=== PATIENT | female | born 1995 | race African-American/Black ===

== ENCOUNTER 2018-07-13 20:06 | Emergency (ER) | payer SELFPAY ==
[2018-07-13 20:09] VITALS: BP 116/73; PULSE 74; TEMP 98; BMI 23.6
--- NOTE | 2018-07-13 20:44 | PDOC ---
Attending Attestation - HPI HPI: 07/13/18 22:12 The patient is a 23 year old female, with a significant PMH of anemia, who presents to the emergency department with abdominal pain that began 2 weeks after the of the her child 5 weeks ago. The patient states the sharp intermittent pain is located to the upper right and left quadrant that is exacerbated when yawning and lying down. The patient states she endorses associated symptoms of chills, SOB, constipation and white vaginal discharge. The patient states she hasn't past a bowel movement in the past 3 weeks. The patient denies chest pain, headache and dizziness. Denies fever, nausea, vomit, and diarrhea. Denies dysuria, frequency, urgency and hematuria. Allergies: NKDA Past surgical history: None reported Social history: None reported PCP: None reported Documentation prepared by Kate Linder, acting as medical assisting program director for Rimma Blair MD. - Physicial Exam PE: 07/13/18 22:13 GENERAL: Awake, alert, and fully oriented, in no acute distress HEAD: No signs of trauma EYES: PERRLA, EOMI, sclera anicteric, conjunctiva clear ENT: Auricles normal inspection, hearing grossly normal, nares patent, oropharynx clear without exudates. Moist mucosa NECK: Normal ROM, supple, no lymphadenopathy, JVD, or masses LUNGS: Breath sounds equal, clear to auscultation bilaterally. No wheezes, and no crackles HEART: Regular rate and rhythm, normal S1 and S2, no murmurs, rubs or gallops ABDOMEN: +Right CVA tenderness and diffuse right abdomen tenderness with voluntary guarding. Soft and no masses EXTREMITIES: Normal range of motion, no edema. No clubbing or cyanosis. No cords, erythema, or tenderness NEUROLOGICAL: Cranial nerves II through XII grossly intact. Normal speech, normal gait SKIN: Warm, Dry, normal turgor, no rashes or lesions noted. Documentation prepared by Kate Linder, acting as medical assisting program director for Rimma Blair MD. <Kate Linder - Last Filed: 07/13/18 22:21> - Resident Resident Name: Brent Gee - Medical Decision Making 07/21/18 07:33 Pt presents to the ED complaining of vague abdominal and back pain for the last week. Afebrile, with R sided abdominal pain. US performed to evaluate for endometritis and is negative. UA negative for infection or . CT performed to evaluate for intraabdominal pathology including appendicitis or renal stone, and is negative. Symptoms may be secondary to constipation. Patient advised to try dietary changes and laxatives and return immediately for worsening symptoms. 07/21/18 07:34 <Rimma Blair - Last Filed: 07/21/18 07:38>
[2018-07-13] MEDS ORDERED: SODIUM CHLORIDE 1,000 ML IV STA (21:08)
[2018-07-13] MEDS ORDERED: ACETAMINOPHEN 1000 MG/100 ML VIAL (NON FORMULARY) IVPB ONE (21:09)
--- NOTE | 2018-07-13 21:20 | PDOC ---
History of Present Illness - General Chief Complaint: Pain Stated Complaint: PAIN Time Seen by Provider: 07/13/18 20:44 History Source: Patient Exam Limitations: No Limitations - History of Present Illness Initial Comments: 07/13/18 21:44 23f with pmh of vaginal delivery at term 5 weeks ago, complaining of sharp 10/ 10 b/l flank pain, worse on the right increasing in intensity for the past 3 weeks. She states that she has been constipated since she gave . Used castor oil as a laxative, 3 weeks ago, had a hard, bloody stool. Says she hasn't had a bm for the past 3 weeks. Has some shortness of breath but due to the pain upon inspiration. Some white vaginal discharge but no blood, not foul-smelling. Hasn't felt like eating since then either. Hasn't had intercourse since delivery. Denies diarrhea or dysuria. No vomiting. She just flew back from [place] 2 weeks ago,. Past History - Past Medical History Allergies/Adverse Reactions: Allergies Allergy/AdvReac Type Severity Reaction Status Date / Time No Known Allergies Allergy Verified 07/13/18 22:15 Home Medications: Ambulatory Orders Polyethylene Glycol 3350 [Miralax (For Bowel Prep) -] 17 gm PO DAILY #1 bottle 07/14/18 Anemia: Yes (SICKLE CELL TRAIT.) COPD: No - Suicide/Smoking/Psychosocial Hx Smoking History: Never smoked Review of Systems - Review of Systems Able to Perform ROS?: Yes Is the patient limited Japanese proficient: No Constitutional: No: Symptoms Reported HEENTM: No: Symptoms Reported Respiratory: No: Symptoms reported Cardiac (ROS): No: Symptoms Reported ABD/GI: Yes: See HPI, Constipated. No: Vomiting : No: Symptoms Reported Musculoskeletal: No: Symptoms Reported Integumentary: No: Symptoms Reported Neurological: No: Symptoms reported *Physical Exam - Vital Signs Last Vital Signs Temp Pulse Resp BP Pulse Ox 98.0 F 74 18 116/73 100 07/13/18 20:07 07/13/18 20:07 07/13/18 20:07 07/13/18 20:07 07/13/18 20:07 - Physical Exam General Appearance: Yes: Nourished, Appropriately Dressed. No: Apparent Distress HEENT: positive: EOMI, [place], Normal ENT Inspection Respiratory/Chest: positive: Lungs Clear, Normal Breath Sounds. negative: Chest Tender, Respiratory Distress Cardiovascular: positive: Regular Rhythm, Regular Rate, S1, S2 Vascular Pulses: Dorsalis-Pedis (R): 2+, Doralis-Pedis (L): 2+ Female Pelvic Exam: positive: normal external exam, cervical os closed. negative: CMT, lesions, Bartholin mass, adnexal tenderness Gastrointestinal/Abdominal: positive: Normal Bowel Sounds, Tender (lower right and left ), Guarding (voluntary) Musculoskeletal: positive: Normal Inspection. negative: CVA Tenderness Extremity: positive: Normal Capillary Refill, Normal Inspection, Normal Range of Motion Integumentary: positive: Normal Color, Dry, Warm Neurologic: positive: Fully Oriented, Alert, Normal Mood/Affect, Normal Response , Motor Strength 5/5 Moderate Sedation - Procedure Monitoring Vital Signs: Procedure Monitoring Vital Signs Temperature 98.0 F 07/13/18 20:07 Pulse Rate 74 07/13/18 20:07 Respiratory Rate 18 07/13/18 20:07 Blood Pressure 116/73 07/13/18 20:07 O2 Sat by Pulse Oximetry (%) 100 07/13/18 20:07 ED Treatment Course - LABORATORY CBC & Chemistry Diagram: 07/13/18 21:34 07/13/18 21:34 Medical Decision Making - Medical Decision Making 07/13/18 22:10 23f 5 weeks post presenting with abdominal pain and constipation, Constipation vs nephrolitiasis vs appendicitis vs PE vs ectopic vs pelvic/ovarian abscess vs endometritis If true that the patient hasnt moved her bowels in 3 week, it is likely the source of her pain, however we have to consider appendicitis, due to anorexia and LRQ pain and nephrolithiasis due to to b/l flank pain which we will determine by ct abd/pelvis after determination of (albeit unlikely) status. In addition we will obtain a transvaginal ultrasound to rule out abscess, PID and endometritis which is unlikely given the lack of lochia and foul smelling discharge Patient is afebrile here but she did report brief, resolved history of subjective fever and chills. Will evaluate white count in basic labs. PE is low in the differential: even though the patient is somewhat peripartum and recent travelled by plane, with pain on inspiration, she has no chest complaints, vitals are stable, not tachy, and she has no leg swelling, no leg pain, no hemoptysis and her pain started before she travelled, for weeks. 07/13/18 22:28 07/14/18 00:49 CT abdomen and pelvis shows 1.5cm ovarian cyst. US pending 07/14/18 01:18 US: small amount of free fluid, physiological for a woman this age. Will discharge with laxative Rx and give OBGYN referral. *DC/Admit/Observation/Transfer Diagnosis at time of Disposition: Constipation - Discharge Dispostion Disposition: HOME Condition at time of disposition: Improved Decision to Admit order: No - Referrals Referrals: Marisa Hannah DO [Staff Physician] - - Patient Instructions Printed Discharge Instructions: DI for Constipation Additional Instructions: Follow up with Dr. Hannah for any OBGYN issues. Come back to the emergency department for any new, worsening or concerning symptom. - Post Discharge Activity
[2018-07-13] MEDS ORDERED: ACETAMINOPHEN INJECTION 100 ML IVPB ONE (21:47)
[2018-07-13 22:18] LABS: ALBUMIN 3.6 g/dl (3.4-5.0); ALK PHOS 78 U/L (45-117); ANION GAP 6 MMOL/L (8-16); BILIRUBIN,TOTAL 0.2 mg/dL (0.2-1); BLOOD UREA NITROGEN 7 mg/dL (7-18); CALCIUM 8.3 mg/dL (8.5-10.1); CHLORIDE 108 mmol/L (98-107); CO2 26 mmol/L (21-32); CREATININE 0.8 mg/dL (0.55-1.3); GLUCOSE,RANDOM 87 mg/dL (74-106); POTASSIUM 4.1 mmol/L (3.5-5.1); SGOT/AST 26 U/L (15-37); SGPT/ALT 19 U/L (13-61); SODIUM 140 mmol/L (136-145)
[2018-07-13 22:24] LABS: BASO % 0.9 % (0-2.0); EOS % 1.4 % (0-4.5); HEMATOCRIT 37.5 % (32.4-45.2); HEMOGLOBIN 11.4 GM/dL (10.7-15.3); LYMPH % 24.1 % (8-40); MCH 23.6 pg (25.7-33.7); MCHC 30.4 g/dl (32.0-36.0); MEAN CELL VOLUME 77.6 fl (80-96); MONO % 7.4 % (3.8-10.2); NEUT % 66.2 % (42.8-82.8); PLATELET COUNT 169 K/MM3 (134-434); RBC 4.84 M/mm3 (3.60-5.2); WHITE BLOOD COUNT 7.8 K/mm3 (4.0-10.0)
[2018-07-13 22:38] LABS: PLATELET ESTIMATE ADEQUATE
[2018-07-13 23:15] LABS: HCG,QUALITATIVE URINE Negative; URINE APPEARANCE SLCLOUDY; URINE BILIRUBIN NEGATIVE (<2.0 mg/dL); URINE COLOR YELLOW; URINE GLUCOSE (UA) NEGATIVE (NEGATIVE); URINE KETONE NEGATIVE (NEGATIVE); URINE LEUK ESTERASE TRACE (NEGATIVE); URINE NITRITE NEGATIVE (NEGATIVE); URINE PROTEIN NEGATIVE (NEGATIVE); URINE UROBILINOGEN 4.0 E.U/dl mg/dL (0.2-1.0)
[2018-07-13 23:44] LABS: EPI CELLS FEW /HPF (FEW); URINE BACTERIA RARE /hpf (NONE SEEN); URINE MUCUS MODERATE
--- NOTE | 2018-07-14 14:31 | EKG ---
Test Reason : Blood Pressure : / mmHG Vent. Rate : 057 BPM Atrial Rate : 057 BPM P-R Int : 156 ms QRS Dur : 086 ms QT Int : 400 ms P-R-T Axes : 046 024 024 degrees QTc Int : 389 ms SINUS BRADYCARDIA WITH SINUS ARRHYTHMIA OTHERWISE NORMAL ECG NO PREVIOUS ECGS AVAILABLE Confirmed by Chandrakant Landry ([id number]) on 07/14/2018 2:30:57 PM Referred By: Confirmed By:Chandrakant Landry
== END 2018-07-14 02:04 | disposition home or self-care (01) ==
LOC: JER 20:06
PROC: 3E033NZ Introduction of Analgesics, Hypnotics, Sedatives into Peripheral Vein, Percutaneous Approach (ICD-10-PCS; principal; 2018-07-13)
DX: O90.89 Other complications of the puerperium, not elsewhere classified (principal); K59.00 Constipation, unspecified
CPT/HCPCS: 36415; 74177-TC; 76830-TC; 80053; 81003; 81015; 84484; 84703; 85025; 87086; 87491; 87591; 87661; 93005; 93010; 99283-25; J0131; J7030

== ENCOUNTER 2018-11-08 12:11 | Emergency (ER) | payer SELFPAY ==
[2018-11-08 12:22] VITALS: BMI 23.8
--- NOTE | 2018-11-08 12:41 | PDOC ---
History of Present Illness - General Chief Complaint: Pain Stated Complaint: ABD PAIN Time Seen by Provider: 11/08/18 12:40 - History of Present Illness Initial Comments: 23 yo A2 currently (unknown gestational age, LMP at the beginning of September) presenting with abdominal pain. Patient states she found out she was yesterday via a home urine test. She has not yet had an ultrasound that confirms an intrauterine and has not established an coding auditor. This morning, she started having 6/10 intermittent suprapubic abdominal pain described as "crampy." She has not taken anything at home for pain. Patient states this pain may feel like contractions. Denies vaginal bleeding or passage of tissue. No nausea or vomiting currently but did have an isolated episode vomiting about one week ago. Last bowel movement was a normal formed brown stool without blood. No surgical history. Denies urinary symptoms. No fevers, chills, chest pain, or shortness of breath. Past History - Past Medical History Allergies/Adverse Reactions: Allergies Allergy/AdvReac Type Severity Reaction Status Date / Time No Known Allergies Allergy Verified 11/08/18 12:22 Home Medications: Ambulatory Orders NK [No Known Home Medication] 11/08/18 Anemia: Yes (SICKLE CELL TRAIT.) COPD: No - Immunization History Immunization Up to Date: Yes - Suicide/Smoking/Psychosocial Hx Smoking History: Never smoked Review of Systems - Review of Systems Comments:: Constitutional: no fever, no chills HEENT: no throat pain, no dysphagia Cardiovascular: no chest pain, no palpitations Respiratory: no cough, no shortness of breath Gastrointestinal: +abdominal pain, no diarrhea Genitourinary: no dysuria, no frequency Musculoskeletal: no myalgia, no arthralgia Skin: no rash, no itching Neurologic: no headache, no weakness *Physical Exam - Vital Signs Last Vital Signs Temp Pulse Resp BP Pulse Ox 98.4 F 75 18 98/59 L 100 11/08/18 12:19 11/08/18 12:19 11/08/18 12:19 11/08/18 12:11/08/18 12:19 - Physical Exam Comments: General: Awake, alert, and fully oriented, in no acute distress Head: No signs of trauma Eyes: EOMI, sclera anicteric ENT: Moist mucus membranes Neck: Normal ROM, supple Lungs: Lungs clear, Normal breath sounds Cardio: Regular rhythm, S1 and S2 present Abdomen: Tender to palpation in suprapubic region. Soft. No guarding, no rebound , no masses. No CVA tenderness. Extremities: Normal range of motion, Distal pulses present SKIN: Warm, Dry, normal turgor Neurologic: Cranial nerves II through XII grossly intact. Normal speech Pelvic: External genitalia without erythema, exudate or discharge. Vaginal vault is with white physiologic discharge, there is scant brownish-reddish discharge present at the cervix. Cervix is of normal color without lesion. The os is closed. There is no bleeding noted. Uterus is noted to be of appropriate size and nontender. No cervical motion tenderness is seen. No masses are palpated. The adnexa are without masses or tenderness. ED Treatment Course - LABORATORY CBC & Chemistry Diagram: 11/08/18 13:36 11/08/18 13:36 Medical Decision Making - Medical Decision Making 23 yo A2 currently (unknown gestational age) presenting with abdominal pain. DDX including but not limited to threatened , ectopic , subchorionic hemorrhage, UTI, ovarian torsion, TOA CBC, CMP, B-hcg, TS, UA, UCx TVUS 650mg po tylenol Patient declined IV. Given pitcher of water 11/08/18 13:44 CBC WBC 8.2 K/mm3 (4.0-10.0) 11/08/18 13:36 RBC 4.63 M/mm3 (3.60-5.2) 11/08/18 13:36 Hgb 11.9 GM/dL (10.7-15.3) 11/08/18 13:36 Hct 36.8 % (32.4-45.2) 11/08/18 13:36 MCV 79.4 fl (80-96) L 11/08/18 13:36 MCH 25.7 pg (25.7-33.7) 11/08/18 13:36 MCHC 32.3 g/dl (32.0-36.0) 11/08/18 13:36 RDW 14.5 % (11.6-15.6) D 11/08/18 13:36 Plt Count 235 K/MM3 (134-434) D 11/08/18 13:36 MPV 10.6 fl (7.5-11.1) 11/08/18 13:36 Absolute Neuts (auto) 4.9 K/mm3 (1.5-8.0) 11/08/18 13:36 Neutrophils % 59.2 % (42.8-82.8) 11/08/18 13:36 Lymphocytes % 30.5 % (8-40) D 11/08/18 13:36 Monocytes % 6.3 % (3.8-10.2) 11/08/18 13:36 Eosinophils % 3.0 % (0-4.5) D 11/08/18 13:36 Basophils % 1.0 % (0-2.0) 11/08/18 13:36 Nucleated RBC % 0 % (0-0) 11/08/18 13:36 No anemia or leukocytosis CMP Sodium 138 mmol/L (136-145) 11/08/18 13:36 Potassium 4.2 mmol/L (3.5-5.1) 11/08/18 13:36 Chloride 104 mmol/L (98-107) 11/08/18 13:36 Carbon Dioxide 28 mmol/L (21-32) 11/08/18 13:36 Anion Gap 5 MMOL/L (8-16) L 11/08/18 13:36 BUN 7 mg/dL (7-18) 11/08/18 13:36 Creatinine 0.7 mg/dL (0.55-1.3) 11/08/18 13:36 Creat Clearance w eGFR 102.81 (>60) 11/08/18 13:36 Random Glucose 79 mg/dL (74-106) 11/08/18 13:36 Calcium 9.1 mg/dL (8.5-10.1) 11/08/18 13:36 Total Bilirubin 0.6 mg/dL (0.2-1) 11/08/18 13:36 AST 20 U/L (15-37) 11/08/18 13:36 ALT 24 U/L (13-61) 11/08/18 13:36 Alkaline Phosphatase 72 U/L (45-117) 11/08/18 13:36 Total Protein 8.1 g/dl (6.4-8.2) 11/08/18 13:36 Albumin 4.3 g/dl (3.4-5.0) 11/08/18 13:36 Beta HCG, Quant 1304.4 mIU/ml 11/08/18 13:36 Electrolytes unremarkable UA with trace LE and 1 WBC; 3.2 epithelial cells present: unlikely infection TVUS: "The uterus is normal in size measuring 10.1 x 6.0 x 4.8 cm. No uterine masses are seen. There is a intrauterine fluid collection that might represent an early gestational sac. Mean sac diameter corresponds to a gestational age of 5 weeks. No yolk sac or pole are present and therefore the viability of this gestation is uncertain. Correlation with serial beta subunit hCG levels and follow-up ultrasonography is now recommended. The ovaries are normal in size and texture with arterial flow documented to both ovaries. There is a right ovarian cyst measuring 2 cm. There is no evidence of adnexal masses or free pelvic fluid collections. IMPRESSION: Possible early IUP. Clinical and laboratory correlation and follow-up ultrasonography recommended. Please see above discussion. " B-hcg is 1304 corresponding with gestational age between two and five weeks. As TVUS did not confirm IUP, patient instructed to get b-hcg level checked again in two days. Patient discharged *DC/Admit/Observation/Transfer Diagnosis at time of Disposition: Abdominal pain during Qualifiers: Trimester: first trimester Qualified Code(s): O26.891 - Other specified related conditions, first trimester - Discharge Dispostion Disposition: HOME Condition at time of disposition: Stable - Referrals Referrals: ON STAFF,NOT [Primary Care Provider] - Charmaine Allison MD [Staff Physician] - Marisa Hannah DO [Staff Physician] - Chico Acosta MD [Staff Physician] - - Patient Instructions Printed Discharge Instructions: DI for Threatened Additional Instructions: You were seen in the Emergency Department for abdominal during . Blood work showed your b-hcg level is 1304.4 today. Ultrasound did not confirm an intrauterine . You must check your Beta-hcg level in two days. Follow-up with an inspector weights and measures on Saturday to re-check your beta-hcg level and to discuss this ED visit and to further evaluate your symptoms. Referrals for other clinics included with your paperwork. Call and make an appointment. Your workup is not complete until you do [place] [address] Medical: Pelvic rest is advised until your inspector weights and measures says otherwise. You can take tylenol at home for abdominal pain. Follow the instructions on the medication bottle. Return to the Emergency Department if you experience: -heavy bleeding (more than two pads per hour for two hours) -severe pain -lightheadedness -shortness of breath -high fever -any other concerning symptoms - Post Discharge Activity Forms/Work/School Notes: Back to Work
[2018-11-08] MEDS ORDERED: ACETAMINOPHEN 325 MG TABLET (FP) PO ONE (13:01)
[2018-11-08] MEDS ORDERED: SODIUM CHLORIDE 1,000 ML IV STA (13:03)
[2018-11-08] MEDS ORDERED: ACETAMINOPHEN 325 MG TABLET (FP) ONE (13:33)
--- NOTE | 2018-11-08 13:38 | PDOC ---
Documentation entered by Kelley Mi SCRIBE, acting as scribe for Judi Quiles MD. Judi Quiles MD: This documentation has been prepared by the jcibe, Kelley Mi SCRIBE, under my direction and personally reviewed by me in its entirety. I confirm that the documentation accurately reflects all work, treatment, procedures, and medical decision making performed by me. Attending Attestation - Resident Resident Name: Judi Nunn - ED Attending Attestation I have performed the following: I have examined & evaluated the patient, The case was reviewed & discussed with the resident, I agree w/resident's findings & plan, Exceptions are as noted - HPI HPI: 11/08/18 13:22 Patient is a 23 year old female with past medical history of sickle cell trait, anemia, a2 who presents to the ED with complaints of lower abdominal cramping and vaginal bleeding. She denies any fevers, chills, nausea, vomiting, or diarrhea. States she had a positive test a few days ago and LMP was in September. Patient has not yet followed up with ham clerk - Physicial Exam PE: GENERAL: Awake, alert, and fully oriented, in no acute distress HEAD: No signs of trauma EYES: PERRLA, EOMI, sclera anicteric, conjunctiva clear ENT: Auricles normal inspection, hearing grossly normal, nares patent, oropharynx clear without exudates. Moist mucosa NECK: Normal ROM, supple, no lymphadenopathy, JVD, or masses LUNGS: Breath sounds equal, clear to auscultation bilaterally. No wheezes, and no crackles HEART: Regular rate and rhythm, normal S1 and S2, no murmurs, rubs or gallops ABDOMEN: Soft, +suprapubic tenderness, normoactive bowel sounds. No guarding, no rebound. No masses EXTREMITIES: Normal range of motion, no edema. No clubbing or cyanosis. No cords, erythema, or tenderness NEUROLOGICAL: Cranial nerves II through XII grossly intact. Normal speech, normal gait. Motor and sensation intact SKIN: Warm, Dry, normal turgor, no rashes or lesions noted. - Medical Decision Making Pt is A2 presents approximately 6WGA with pelvic pain. Will obtain sono to r /o ectopic.
[2018-11-08 13:49] LABS: HEMATOCRIT 36.8 % (32.4-45.2); HEMOGLOBIN 11.9 GM/dL (10.7-15.3); LYMPH % 30.5 % (8-40); MCH 25.7 pg (25.7-33.7); MCHC 32.3 g/dl (32.0-36.0); MEAN CELL VOLUME 79.4 fl (80-96); MEAN PLT VOLUME 10.6 fl (7.5-11.1); MONO % 6.3 % (3.8-10.2); NEUT % 59.2 % (42.8-82.8); PLATELET COUNT 235 K/MM3 (134-434); RBC 4.63 M/mm3 (3.60-5.2); RDW 14.5 % (11.6-15.6); WHITE BLOOD COUNT 8.2 K/mm3 (4.0-10.0)
[2018-11-08 13:52] LABS: EPI CELLS 3.2 /HPF (0-5/HPF); URINE APPEARANCE CLEAR; URINE BACTERIA 33.5 /hpf (NEGATIVE); URINE BILIRUBIN NEGATIVE (NEGATIVE); URINE CASTS 1 /lpf (0-8); URINE COLOR YELLOW; URINE GLUCOSE (UA) NEGATIVE (NEGATIVE); URINE KETONE NEGATIVE (NEGATIVE); URINE LEUK ESTERASE TRACE (NEGATIVE); URINE NITRITE NEGATIVE (NEGATIVE); URINE PROTEIN NEGATIVE (NEGATIVE); URINE RBC 0 /hpf (0-4); URINE WBC 1 /hpf (0-5)
[2018-11-08 14:34] LABS: ALBUMIN 4.3 g/dl (3.4-5.0); ALK PHOS 72 U/L (45-117); ANION GAP 5 MMOL/L (8-16); BILIRUBIN,TOTAL 0.6 mg/dL (0.2-1); BLOOD UREA NITROGEN 7 mg/dL (7-18); CALCIUM 9.1 mg/dL (8.5-10.1); CHLORIDE 104 mmol/L (98-107); CO2 28 mmol/L (21-32); CREATININE 0.7 mg/dL (0.55-1.3); GLUCOSE,RANDOM 79 mg/dL (74-106); POTASSIUM 4.2 mmol/L (3.5-5.1); SGOT/AST 20 U/L (15-37); SGPT/ALT 24 U/L (13-61); SODIUM 138 mmol/L (136-145); TOT PROT 8.1 g/dl (6.4-8.2)
[2018-11-08 16:05] VITALS: BP 100/72; PULSE 89; TEMP 98.6
== END 2018-11-08 16:05 | disposition home or self-care (01) ==
LOC: SUPCPDRO 12:11 → JER 12:11
PROC: 3E0337Z Introduction of Electrolytic and Water Balance Substance into Peripheral Vein, Percutaneous Approach (ICD-10-PCS; principal; 2018-11-08)
DX: O26.891 Other specified pregnancy related conditions, first trimester (principal); R10.30 Lower abdominal pain, unspecified; O34.81 Maternal care for other abnormalities of pelvic organs, first trimester; N83.291 Other ovarian cyst, right side; Z3A.00 Weeks of gestation of pregnancy not specified
CPT/HCPCS: 36415; 76817-TC; 80053; 81003; 84702; 85025; 86850; 86900; 86901; 87086; 99282-25

== ENCOUNTER 2019-06-27 06:58 | Inpatient (IN) | payer OTHER ==
[2019-06-27] MEDS: ELECTROLYTE-148 SOLN 1,000 ML IV SCH ×2 (08:45→10:45)
[2019-06-27 09:25] VITALS: BMI 30.7
[2019-06-27 09:30] LABS: BASO % 0.3 % (0-2.0); EOS % 0.5 % (0-4.5); HEMATOCRIT 33.1 % (32.4-45.2); HEMOGLOBIN 10.5 GM/dL (10.7-15.3); LYMPH % 14.7 % (8-40); MCH 24.1 pg (25.7-33.7); MCHC 31.6 g/dl (32.0-36.0); MEAN CELL VOLUME 76.1 fl (80-96); NEUT % 76.5 % (42.8-82.8); PLATELET COUNT 167 K/MM3 (134-434); RBC 4.35 M/mm3 (3.60-5.2); RDW 14.4 % (11.6-15.6); WHITE BLOOD COUNT 10.9 K/mm3 (4.0-10.0)
--- NOTE | 2019-06-27 09:44 | HP ---
Past Medical History - Admission Chief Complaint: Vaginal bleeding History of Present Illness: 24yo @ 37.5wks here with vaginal bleeding, contractions No LOF. +FM Preg c/b: late transfer of care from [place] [facility] @ [facility], 2 visits History Source: Patient - Past Medical History Cardiovascular: No: AFIB, Aneurysm, Aortic Insufficiency, Aortic Stenosis, CAD, CHF, Deep Vein Thrombosis, HTN, Hyperlipdemia, DC, Mitral Insufficiency, Mitral Stenosis, Murmur, Pulmonary Hypertension, Other Gastrointestinal: No: Ascites, Cancer, Constipation, Crohn's Disease, Diverticulitis, Diverticulosis, Esophageal Varices, Gastritis, GERD, GI Bleed, Hemorrhoids, Hiatal Hernia, Inflamatory Bowel Disease, Irritable Bowel Disease, Pancreatitis, Peptic Ulcer Disease, Ulcerative Colitis, Other ...: 5 ...Para: 2 ...Term: 2 ...: 0 ...Spon : 1 ...Induced : 1 ...Multiple Gestation: 0 ...LMP: 10/06/18 ... Weeks Gestation by Dates: 37.5 ...EDC by Dates: 07/13/19 ...EDC by Sono: 07/13/19 Heme/Onc: Yes: Anemia - Past Surgical History Past Surgical History: No: None, AAA Repair, AICD, Amputation, Appendectomy, Arthrosocopy, AV Fistula/Graft, Bariatric Surgery, Breast Biopsy, Bypass, CABG, Carotid Endarterectomy, Cataract Removal, Cholecystectomy, Colectomy, Colonoscopy, Colostomy, Craniotomy, , Cystectomy, Hernia Repair, Hysterectomy, Ileal Conduit, Ileosotomy, Joint Replacement, Kidney Transplant, Laminectomy, Liver Transplant, Mastectomy, Nephrectomy, Oopherectomy, Orchiectomy, Permanent Pacemaker, Prostatectomy, Splenectomy, Stent, Thoracotomy , TURP, Tonsillectomy, Tubal Ligation, Upper Endoscopy, Valve Replacement, Vasectomy, Vein Stripping/Ligation Hx Myomectomy: No Hx Transabdominal Cerclage: No - Smoking History Smoking history: Never smoked Have you smoked in the past 12 months: No - Alcohol/Substance Use Hx Alcohol Use: No - Social History Usual Living Arrangement: Yes: With Significant Other Do you think of yourself as: Straight/Heterosexual ADL: Independent History of Recent Travel: No Home Medications - Allergies Allergies/Adverse Reactions: Allergies Allergy/AdvReac Type Severity Reaction Status Date / Time No Known Allergies Allergy Verified 06/27/19 08:32 - Home Medications Home Medications: Ambulatory Orders Ferrous Sulfate [Feosol] 325 mg PO DAILY 06/02/19 Vits96/Iron Fum/Folic [ Tablet] 1 each PO DAILY 06/02/19 Physical Exam - Maternity Vital Signs: Vital Signs Temperature 98.0 F 06/27/19 09:00 Pulse Rate 100 H 06/27/19 09:00 Respiratory Rate 18 06/27/19 09:00 Blood Pressure 105/62 06/27/19 09:00 O2 Sat by Pulse Oximetry (%) Constitutional: Yes: Well Nourished, No Distress, Calm Eyes: Yes: WNL, Conjunctiva Clear, EOM Intact HENT: Yes: WNL, Atraumatic, Normocephalic Neck: Yes: WNL, Supple, Trachea Midline Cardiovascular: Yes: WNL, Regular Rate and Rhythm Breast(s): Yes: WNL - Abdominal Exam/OB Number of Fetuses: Single Presentation: Vertex Contractions: Yes Regularity: Irritability Intensity: Mild Monitor Mode: External Category: I Accelerations: None Decelerations: None - Vaginal Exam/OB Vaginal Bleediing: Yes Speculum Exam: No Dilatation (cm): 5 Effacement (%): 50 Amniotic Membrane Status: Intact Presentation: Vertex/Position Station: -3 - Physical Exam Edema: No - Labs Lab Results: CBC, BMP 06/27/19 08:55 Assessment/Plan 24yo @ 37.5wks here in labor Admit to L&D Admission labs Cat I tracing Epidural prn Anticipate TERESITA Allison MD
[2019-06-27] MEDS ORDERED: ELECTROLYTE-148 SOLN 1,000 ML IV SCH (09:45)
[2019-06-27] MEDS ORDERED: FENTANYL/BUPIVACAINE/NS/PF - PCEA - 50 ML DISP.SYRIN EP ONE (09:45)
--- NOTE | 2019-06-27 09:47 | PN ---
Progress Note, Labor Vaginal Exam #1 Labor Exam Date: 06/27/19 Heart Rate (range): Cat I Dilatation: 5 Effacement (%): 50 Amniotic Membrane Status: Ruptured Presentation: Vertex/Position Station: -3 Remarks: Getting more uncomfortable AROM, clears Epidural prn Ruby Allison MD
[2019-06-27] MEDS ORDERED: LIDO 2%/EPI 1:200000 PRESRVFRE (20 ML SDVIAL) ONE (09:53)
[2019-06-27] MEDS ORDERED: BUPIVACAINE HCL/PF 2.5 MG/ML - 30 ML VIAL IJ ONE (09:53)
[2019-06-27 09:55] LABS: BLOOD UREA NITROGEN 6.6 mg/dL (7-18); CALCIUM 8.3 mg/dL (8.5-10.1); CREATININE 0.5 mg/dL (0.55-1.3); INR 0.96 (0.83-1.09); POTASSIUM 3.8 mmol/L (3.5-5.1); PROTHROMBIN TIME (PATIENT) 11.3 SEC (9.7-13.0)
[2019-06-27 09:58] LABS: ACTIVATED PTT 24.1 SECONDS (25.2-36.5)
[2019-06-27] MEDS ORDERED: NALOXONE HCL 0.4 MG/ML VIAL IVPUSH PRN (10:44)
[2019-06-27] MEDS ORDERED: FENTANYL/BUPIVACAINE/NS/PF - PCEA - 50 ML DISP.SYRIN EP SCH (10:45)
[2019-06-27] MEDS ORDERED: OXYTOCIN 30 UNITS in 0.9% NS 30 UNIT/500 ML INFUS.BAG IVPB SCH (11:00)
[2019-06-27] MEDS ORDERED: OXYTOCIN 30 UNITS in 0.9% NS 30 UNIT/500 ML INFUS.BAG IVPB ONE (11:09)
--- NOTE | 2019-06-27 12:12 | PN ---
Progress Note, Labor Vaginal Exam #1 Labor Exam Date: 06/27/19 Labor Exam Time: 12:10 Heart Rate (range): Cat I Dilatation: 8 Effacement (%): 100 Amniotic Membrane Status: Ruptured Presentation: Vertex/Position Station: 0 Remarks: Pt more comfortable after epidural Cont pitocin Anticipate
[2019-06-27] MEDS ORDERED: OXYTOCIN 20 UNITS in 0.9% NS 20 UNIT/1,000 ML INFUS.BAG IV ONE ×2 (12:31→14:28)
--- NOTE | 2019-06-27 12:31 | PN ---
Progress Note, Labor Vaginal Exam #2 Labor Exam Date: 06/27/19 Labor Exam Time: 12:30 Heart Rate (range): Cat I Dilatation: 10 Effacement (%): 100 Amniotic Membrane Status: Ruptured Presentation: Vertex/Position Station: +1 Remarks: Pt feeling pressure and pain now Will remove guerrero and start pushing Anticipate TERESITA Allison MD
[2019-06-27] MEDS ORDERED: LIDOCAINE HCL 1% PRESERVATIVE FREE - 30ML VIAL ONE (12:32)
[2019-06-27] MEDS: OXYTOCIN 20 UNITS in 0.9% NS 20 UNIT/1,000 ML INFUS.BAG IV SCH ×2 (12:40→17:00)
--- NOTE | 2019-06-27 12:44 | PN ---
Delivery - Delivery Vaginal Delivery: Spontaneous Type of Anesthesia: Epidural Episiotomy/Laceration: None EBL (cc): 250 Delivery, Single - Stages of Labor Placenta: Yes: Spontaneous - Condition of Afterschool Babysitter/Software Licensing Executive Present: No Infant Gender: Female Position: Right, OA - 1 Minute Total Score: 9 5 Minutes Total Score: 9 - Feeding Plan Initial Plan: Exclusive throughout hospitalization Remarks - Remarks Remarks: of VFI from JOSE G position over intact perineum. Epidural anesthesia. 37 weeks gestation. No nuchal. No meconium. Spontaneous delivery of anterior shoulder and body, placed on maternal abdomen. Cord clamped and cut. Weight pending to allow sufficient skin to skin. Apgars 9/9. Spontaneous delivery of intact placenta with 3VC. Fundus firm. Perineum inspected, no lacerations. Mother and baby doing well. Charmaine Allison MD
[2019-06-27] MEDS ORDERED: BENZOCAINE 20% 57 GM BOTTLE TP PRN (12:45)
[2019-06-27] MEDS ORDERED: WITCH HAZEL 50% (TUCKS) 40 PAD/JAR PAD TP PRN (12:45)
[2019-06-27] MEDS ORDERED: BISACODYL 10 MG SUPP.RECT RC PRN (12:45)
[2019-06-27] MEDS ORDERED: BENZOCAINE 28 GM HEMORRHOIDAL OINTMENT TP PRN (12:45)
[2019-06-27] MEDS ORDERED: METHYLERGONOVINE MALEATE 0.2 MG/1 ML AMP IM PRN (12:45)
[2019-06-27] MEDS ORDERED: IBUPROFEN 600 MG TABLET (FP) PO ONE (14:45)
[2019-06-27] MEDS: IBUPROFEN 600 MG TABLET (FP) PO PRN ×2 (14:45→21:56)
[2019-06-27] MEDS: ACETAMINOPHEN 325 MG TABLET (FP) PO PRN ×2 (14:45→21:55)
[2019-06-27] MEDS ORDERED: ACETAMINOPHEN 325 MG TABLET (FP) ONE (14:46)
[2019-06-28 07:56] LABS: BASO % 0.4 % (0-2.0); EOS % 0.9 % (0-4.5); HEMATOCRIT 28.7 % (32.4-45.2); HEMOGLOBIN 9.1 GM/dL (10.7-15.3); LYMPH % 21.7 % (8-40); MCH 24.3 pg (25.7-33.7); MCHC 31.9 g/dl (32.0-36.0); MEAN CELL VOLUME 76.1 fl (80-96); MEAN PLT VOLUME 10.6 fl (7.5-11.1); MONO % 9.5 % (3.8-10.2); NEUT % 67.5 % (42.8-82.8); PLATELET COUNT 139 K/MM3 (134-434); RBC 3.77 M/mm3 (3.60-5.2); RDW 14.3 % (11.6-15.6); WHITE BLOOD COUNT 8.5 K/mm3 (4.0-10.0)
[2019-06-28] MEDS: ACETAMINOPHEN 325 MG TABLET (FP) PO PRN ×2 (09:22→21:09)
[2019-06-28] MEDS: IBUPROFEN 600 MG TABLET (FP) PO PRN ×2 (09:22→21:10)
[2019-06-28] MEDS: PRENATAL VITAMINS W/ FOLIC ACID TABLET (FP) PO SCH (09:23)
--- NOTE | 2019-06-28 13:24 | PN ---
Post Progress Note - Subjective Subjective: Doing well. Pain controlled. Ambulating. . No fevers/chills. Lochia c/w menses Type of Delivery: Vital Signs: Vital Signs Temperature 98.1 F 06/28/19 09:00 Pulse Rate 78 06/28/19 09:00 Respiratory Rate 20 06/28/19 09:00 Blood Pressure 113/70 06/28/19 09:00 O2 Sat by Pulse Oximetry (%) 100 06/27/19 12:30 Uterus: Yes: Fundus below umbilicus Abdomen/GI: Yes: Abdomen soft, Tolerating PO Lochia: Yes: Rubra Lochia, amount: Small Extremities: Yes: Calves non-tender Perineum: Yes: Intact Activity: Ambulating - Labs Labs: CBC WBC 8.5 K/mm3 (4.0-10.0) 06/28/19 07:10 RBC 3.77 M/mm3 (3.60-5.2) 06/28/19 07:10 Hgb 9.1 GM/dL (10.7-15.3) L 06/28/19 07:10 Hct 28.7 % (32.4-45.2) L 06/28/19 07:10 MCV 76.1 fl (80-96) L 06/28/19 07:10 MCH 24.3 pg (25.7-33.7) L 06/28/19 07:10 MCHC 31.9 g/dl (32.0-36.0) L 06/28/19 07:10 RDW 14.3 % (11.6-15.6) 06/28/19 07:10 Plt Count 139 K/MM3 (134-434) 06/28/19 07:10 MPV 10.6 fl (7.5-11.1) 06/28/19 07:10 Absolute Neuts (auto) 5.7 K/mm3 (1.5-8.0) 06/28/19 07:10 Neutrophils % 67.5 % (42.8-82.8) 06/28/19 07:10 Lymphocytes % 21.7 % (8-40) D 06/28/19 07:10 Monocytes % 9.5 % (3.8-10.2) 06/28/19 07:10 Eosinophils % 0.9 % (0-4.5) 06/28/19 07:10 Basophils % 0.4 % (0-2.0) 06/28/19 07:10 Nucleated RBC % 0 % (0-0) 06/28/19 07:10 Assessment/Plan 24yo s/p , PPD#1 Routine PP care OOB, ambulate Labs reviewed D/C to home PPD#2 Ruby Allison MD
[2019-06-28] MEDS ORDERED: SENNOSIDES/DOCUSATE COMBO (SENNA PLUS) TABLET (UD) PO PRN (22:00)
--- NOTE | 2019-06-29 08:28 | DS ---
Physical Examination Vital Signs: Vital Signs Temperature 98.1 F 06/28/19 22:00 Pulse Rate 89 06/28/19 22:00 Respiratory Rate 18 06/28/19 22:00 Blood Pressure 116/70 06/28/19 22:00 O2 Sat by Pulse Oximetry (%) 100 06/27/19 12:30 Constitutional: Yes: Well Nourished, No Distress, Calm Eyes: Yes: WNL, Conjunctiva Clear, EOM Intact HENT: Yes: WNL, Atraumatic, Normocephalic Neck: Yes: WNL, Supple, Trachea Midline Cardiovascular: Yes: WNL, Regular Rate and Rhythm Respiratory: Yes: WNL, Regular, CTA Bilaterally Gastrointestinal: Yes: WNL, Normal Bowel Sounds Musculoskeletal: Yes: WNL Extremities: Yes: WNL Edema: No Integumentary: Yes: WNL Neurological: Yes: WNL, Alert, Oriented ...Motor Strength: WNL Psychiatric: Yes: WNL Labs: CBC, BMP 06/28/19 07:10 06/27/19 08:55 Discharge Summary Problems reviewed: Yes Reason For Visit: LABOR ADMIT Procedures: Principal: Hospital Course: Patient presented in labor. She had an uncomplicated She met all milestones. She was discharged home on PPD2 Condition: Stable - Instructions Diet, Activity, Other Instructions: Regular Diet Follow up in 4-6 weeks for your visit Referrals: Charmaine Allison MD [Staff Physician] - Disposition: HOME - Home Medications Comprehensive Discharge Medication List: Ambulatory Orders Ferrous Sulfate [Feosol] 325 mg PO DAILY 06/02/19 Vits96/Iron Fum/Folic [ Tablet] 1 each PO DAILY 06/02/19 Ibuprofen 600 mg PO Q6H PRN #30 tablet 06/28/19
[2019-06-29] MEDS: PRENATAL VITAMINS W/ FOLIC ACID TABLET (FP) PO SCH (11:01)
[2019-06-29 12:49] VITALS: BP 118/66; PULSE 60; TEMP 98
== END 2019-06-29 12:05 | disposition home or self-care (01) | DRG 560 ==
LOC: JDEL 06:58 → JLDR 07:50 → J3W 14:49
PROVIDERS: ADMIT Obstetrics & Gynecology; ATTEND Obstetrics & Gynecology
PROC: 10E0XZZ Delivery of Products of Conception, External Approach (ICD-10-PCS; principal; 2019-06-27)
DX: O80 Encounter for full-term uncomplicated delivery (principal); Z3A.37 37 weeks gestation of pregnancy; Z37.0 Single live birth
CPT/HCPCS: 36415; 59409; 80048; 85025; 85610; 85730; 86593; 86850; 86900; 86901